=== PATIENT | female | born 1990 | race Caucasian/White ===

== ENCOUNTER 2019-01-28 13:45 | Inpatient (IN) | payer OTHER ==
[2019-01-28] MEDS ORDERED: TUBERCULIN PPD 5 TU/0.1ML SYRINGE (IN PATIENT USE ONLY) ID ONE ×2 (14:14→14:45)
[2019-01-28] MEDS ORDERED: BUTORPHANOL TARTRATE 1 MG/ML VIAL IVPB ONE (14:26)
[2019-01-28] MEDS ORDERED: PROMETHAZINE HCL 25 MG/1 ML VIAL IVPB ONE (14:26)
--- NOTE | 2019-01-28 14:26 | HP ---
Past Medical History - Admission Chief Complaint: Oligo at 40 weeks History Source: Patient - Past Surgical History Hx Myomectomy: No Hx Transabdominal Cerclage: No - Smoking History Smoking history: Never smoked Have you smoked in the past 12 months: No Aproximately how many cigarettes per day: 0 - Alcohol/Substance Use Hx Alcohol Use: No Home Medications - Allergies Allergies/Adverse Reactions: Allergies Allergy/AdvReac Type Severity Reaction Status Date / Time No Known Drug Allergies Allergy Verified 01/28/19 14:15 - Home Medications Home Medications: Ambulatory Orders Vitamins (Sjr) - 1 tab PO DAILY #0 tablet 03/03/13 Physical Exam - Maternity Constitutional: Yes: Well Nourished, No Distress - Abdominal Exam/OB Presentation: Vertex Contractions: Yes Category: I - Vaginal Exam/OB Dilatation (cm): 2 Effacement (%): long Amniotic Membrane Status: Intact Presentation: Vertex/Position - Physical Exam Musculoskeletal: Yes: WNL Extremities: Yes: WNL Edema: No Psychiatric: Yes: WNL, Alert, Oriented Problem List - Problems (1) Oligohydramnios antepartum Code(s): O41.00X0 - OLIGOHYDRAMNIOS, UNSP TRIMESTER, NOT APPLICABLE OR UNSP (2) Postmaturity , 40-42 weeks gestation Code(s): O48.0 - POST-TERM Assessment/Plan IUp at 40.1 week Oligo Cat 1 Plan cervidil
[2019-01-28 14:28] VITALS: BMI 34.1
[2019-01-28] MEDS ORDERED: DINOPROSTONE 10 MG VAGINAL SUPPOSITORY VG ONE (14:29)
[2019-01-28 16:21] LABS: BASO % 0.2 % (0-2.0); EOS % 0.7 % (0-4.5); HEMOGLOBIN 13.8 GM/dL (10.7-15.3); LYMPH % 19.1 % (8-40); MCH 32.8 pg (25.7-33.7); MCHC 35.3 g/dl (32.0-36.0); MONO % 5.5 % (3.8-10.2); NEUT % 74.5 % (42.8-82.8); PLATELET COUNT 224 K/MM3 (134-434); RBC 4.19 M/mm3 (3.60-5.2); RDW 12.6 % (11.6-15.6); WHITE BLOOD COUNT 11.1 K/mm3 (4.0-10.0)
[2019-01-28 16:34] LABS: INR 0.95 (0.83-1.09); PROTHROMBIN TIME (PATIENT) 11.2 SEC (9.7-13.0)
[2019-01-28 16:36] LABS: ACTIVATED PTT 29.6 SECONDS (25.2-36.5)
[2019-01-28 16:45] LABS: ANION GAP 7 MMOL/L (8-16); BLOOD UREA NITROGEN 8 mg/dL (7-18); CALCIUM 8.7 mg/dL (8.5-10.1); CHLORIDE 107 mmol/L (98-107); CO2 25 mmol/L (21-32); CREATININE 0.5 mg/dL (0.55-1.3); GLUCOSE,RANDOM 62 mg/dL (74-106); POTASSIUM 4.6 mmol/L (3.5-5.1); SODIUM 138 mmol/L (136-145)
[2019-01-28] MEDS: ELECTROLYTE-148 SOLN 1,000 ML IV SCH (16:55)
--- NOTE | 2019-01-28 22:19 | PN ---
Ante-Partal Exam - Subjective Subjective: Pt doing well Vital Signs: Vital Signs Temperature 98.1 F 01/28/19 22:00 Pulse Rate 91 H 01/28/19 22:00 Respiratory Rate 18 01/28/19 22:00 Blood Pressure 108/56 L 01/28/19 22:00 O2 Sat by Pulse Oximetry (%) Bleeding: No Headache: No Visual changes: No Right upper quadrant pain: No - Contractions Contractions: Yes Regularity: Irregular Intensity: Mild Monitor Mode: External - Exam during Labor Variability: Moderate Category: I Monitor Accelerations: Present Monitor Decelerations: None Exam: Vaginal Dilatation (cm): 2 Amniotic Membrane Status: Intact Presentation: Vertex Station: -1 - Intrapartum Hemorrhage Risk Risk Score: 0 Risk Level: Low Risk - Assessment/Plan Assessment/Plan: Cat 1 IUP at 40 week plan cervidil placed
[2019-01-29] MEDS: ELECTROLYTE-148 SOLN 1,000 ML IV SCH (02:00)
[2019-01-29] MEDS ORDERED: OXYTOCIN 20 UNITS in 0.9% NS 20 UNIT/1,000 ML INFUS.BAG IV ONE ×2 (07:41→09:56)
[2019-01-29] MEDS ORDERED: OXYTOCIN IVPB SCH (08:25)
[2019-01-29] MEDS ORDERED: SODIUM CHLORIDE IVPB SCH (08:25)
[2019-01-29] MEDS ORDERED: LIDOCAINE HCL 1% PRESERVATIVE FREE - 30ML VIAL ONE (08:27)
--- NOTE | 2019-01-29 08:41 | PN ---
Ante-Partal Exam - Subjective Subjective: Pt feels like pushing Vital Signs: Vital Signs Temperature 98.4 F 01/29/19 06:00 Pulse Rate 90 01/29/19 08:00 Respiratory Rate 18 01/29/19 08:00 Blood Pressure 116/50 L 01/29/19 08:00 O2 Sat by Pulse Oximetry (%) Bleeding: No Headache: No Visual changes: No Right upper quadrant pain: No - Contractions Contractions: Yes Regularity: Regular Intensity: Moderate Monitor Mode: External - Exam during Labor Heart Rate: 150 Variability: Moderate Category: I Monitor Decelerations: Early Exam: Vaginal Dilatation (cm): 9 Amniotic Membrane Status: Ruptured Amniotic Fluid: Clear Presentation: Vertex - Assessment/Plan Assessment/Plan: cat 1 iup at 40 weeks Plan anticipate vaginal delivery
[2019-01-29] MEDS ORDERED: BISACODYL 10 MG SUPP.RECT RC PRN (08:42)
[2019-01-29] MEDS ORDERED: IBUPROFEN 600 MG TABLET (FP) PO PRN (08:42)
[2019-01-29] MEDS ORDERED: ACETAMINOPHEN 325 MG TABLET (FP) PO PRN (08:42)
[2019-01-29] MEDS ORDERED: METHYLERGONOVINE MALEATE 0.2 MG/1 ML AMP IM PRN (08:42)
[2019-01-29] MEDS ORDERED: BENZOCAINE 28 GM HEMORRHOIDAL OINTMENT PR PRN (08:42)
[2019-01-29] MEDS ORDERED: BENZOCAINE 20% 57 GM BOTTLE TP PRN (08:42)
[2019-01-29] MEDS ORDERED: WITCH HAZEL 50% (TUCKS) 40 PAD/JAR PAD TP PRN (08:42)
--- NOTE | 2019-01-29 08:45 | PN ---
Delivery - Delivery Vaginal Delivery: No Problems (early hemorrhage after delivery uterine massage and methergine given) Episiotomy/Laceration: Perineal Extension/lac EBL (cc): 600 Delivery, Single - Stages of Labor Placenta: Yes: Spontaneous - Condition of Infant Infant Gender: Male Position: OA - Feeding Plan Initial Plan: Exclusive throughout hospitalization
[2019-01-29] MEDS ORDERED: OXYTOCIN 20 UNITS in 0.9% NS 20 UNIT/1,000 ML INFUS.BAG IV SCH ×2 (08:55→10:55)
[2019-01-29 08:58] LABS: VENOUS PC02 40.3 mmHg (41-51); VENOUS PH 7.36 (7.31-7.41); VENOUS PO2 26.9 mmHg (30-40)
[2019-01-29 20:31] LABS: BASO % 0.1 % (0-2.0); EOS % 0.4 % (0-4.5); HEMATOCRIT 31.7 % (32.4-45.2); HEMOGLOBIN 10.9 GM/dL (10.7-15.3); LYMPH % 17.5 % (8-40); MCH 31.9 pg (25.7-33.7); MCHC 34.4 g/dl (32.0-36.0); MEAN CELL VOLUME 92.9 fl (80-96); MEAN PLT VOLUME 8.9 fl (7.5-11.1); MONO % 7.8 % (3.8-10.2); NEUT % 74.2 % (42.8-82.8); PLATELET COUNT 211 K/MM3 (134-434); RBC 3.41 M/mm3 (3.60-5.2); RDW 12.6 % (11.6-15.6)
[2019-01-30 07:29] LABS: BASO % 0.1 % (0-2.0); EOS % 0.9 % (0-4.5); HEMATOCRIT 32.4 % (32.4-45.2); HEMOGLOBIN 11.2 GM/dL (10.7-15.3); LYMPH % 22.8 % (8-40); MCHC 34.4 g/dl (32.0-36.0); MEAN PLT VOLUME 8.6 fl (7.5-11.1); MONO % 6.2 % (3.8-10.2); PLATELET COUNT 188 K/MM3 (134-434); RBC 3.49 M/mm3 (3.60-5.2); RDW 12.8 % (11.6-15.6); WHITE BLOOD COUNT 9.2 K/mm3 (4.0-10.0)
[2019-01-30] MEDS ORDERED: SENNOSIDES/DOCUSATE COMBO (SENNA PLUS) TABLET (UD) PO ONE (20:52)
[2019-01-31 11:50] VITALS: BP 120/73; PULSE 85; TEMP 98
--- NOTE | 2019-02-03 22:35 | DS ---
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: Vital Signs Temperature 98.0 F 01/31/19 10:00 Pulse Rate 85 01/31/19 10:00 Respiratory Rate 18 01/31/19 10:00 Blood Pressure 120/73 01/31/19 10:00 O2 Sat by Pulse Oximetry (%) 98 01/29/19 21:33 Constitutional: Yes: Well Nourished, No Distress Neck: Yes: WNL Cardiovascular: Yes: WNL Respiratory: Yes: WNL Gastrointestinal: Yes: WNL ...Rectal Exam: Yes: WNL Renal/: Yes: WNL ....Post : Yes: Uterus firm, Uterus non-tender Musculoskeletal: Yes: WNL Extremities: Yes: WNL Edema: No Neurological: Yes: WNL, Alert, Oriented Labs: CBC, BMP 01/30/19 06:30 01/28/19 15:35 Delivery - Delivery Vaginal Delivery: No Problems (early hemorrhage after delivery uterine massage and methergine given) Type of Anesthesia: None Episiotomy/Laceration: Perineal Extension/lac EBL (cc): 600 Delivery, Single - Stages of Labor Date 1st Stage Initiatied: 01/29/19 Time 1st Stage Initiated: 01:00 Date 2nd Stage Initiated: 01/29/19 Time 2nd Stage Initiated: 08:10 Date of Delivery: 01/29/19 Time of Delivery: 08:22 Time Placenta Delivered: 08:28 Placenta: Yes: Spontaneous - 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 You may walk unlimited brendan of and climb stairs. You may resume driving the car when you feel safe and comfortable behind the wheel. No sexual activity as instructed. Wound care If you have a bandage, leave it on, and keep dry for 48-72 hours. After that time discard the outer bandage. If they are tapes on the skin under the out of bandage leave them in place. They will peel off in the next 7 to 10 days. Do Not Peel them off. You may shower the day after surgery. If there are tapes present on the skin, you may shower over them. Diet There are no dietary restrictions. Eat healthy, high-fiber foods. Drink 6 to 8 glasses of liquid each day. This will assist in keeping your bowels are regular. Pain management You may take Tylenol or acetaminophen or Ibuprofen (for example, Motrin, Advil etc.) from my pain prescription medication is ordered should be taken as prescribed for moderate to severe pain. Call MD for any of the following: Severe pain not relieved by medication Fever of 101 or higher Excessive bleeding or drainage on dressing Inability to urinate Disposition: HOME - Home Medications Comprehensive Discharge Medication List: Ambulatory Orders Vitamins (Sjr) - 1 tab PO DAILY #0 tablet 03/03/13 Ibuprofen [Motrin -] 600 mg PO QID #28 tablet 01/30/19
--- NOTE | 2019-02-03 22:36 | PN ---
Post Note - Post Date of Delivery: 01/29/19 - Subjective Subjective: No Complaints - Objective Afebrile: No Breast: Not engorged Abdomen: Soft, Non-tender Uterus: Fundus firm Vagina: Scant lochia Extremities: Non-tender - Assessment/Plan (1) Oligohydramnios antepartum Assessment: S/P Normal (2) Postmaturity , 40-42 weeks gestation Plan: Routine Care
== END 2019-01-31 10:45 | disposition home or self-care (01) | DRG 806 ==
LOC: JLDR 13:45 → J3W 01-29 10:01
PROVIDERS: ADMIT Obstetrics & Gynecology; ATTEND Obstetrics & Gynecology
PROC: 10E0XZZ Delivery of Products of Conception, External Approach (ICD-10-PCS; principal; 2019-01-29)
PROC: 0HQ9XZZ Repair Perineum Skin, External Approach (ICD-10-PCS; 2019-01-29)
DX: O48.0 Post-term pregnancy (principal); O41.03X0 Oligohydramnios, third trimester, not applicable or unspecified; O72.1 Other immediate postpartum hemorrhage; O70.0 First degree perineal laceration during delivery; Z3A.40 40 weeks gestation of pregnancy; Z37.0 Single live birth
CPT/HCPCS: 36415; 59409; 80048; 82803; 85025; 85610; 85730; 86593; 86850; 86900; 86901; J7030